=== PATIENT | male | born 1965 | race Caucasian/White ===

== ENCOUNTER 2018-09-15 23:00 | Emergency (ER) | payer BC, OTHER ==
[2018-09-15 23:18] VITALS: BP 159/95
[2018-09-16] MEDS ORDERED: IBUPROFEN 600 MG TABLET PO STA (01:08)
[2018-09-16] MEDS ORDERED: DOXYCYCLINE 100 MG TABLET PO STA (01:08)
[2018-09-16] MEDS ORDERED: ACETAMINOPHEN 325 MG TABLET PO STA (01:08)
--- NOTE | 2018-09-16 01:09 | ED Physician Documentation ---
PD HPI ANIMAL BITE - Stated complaint Stated Complaint: DOG BITE/BOTH HANDS - Chief complaint Chief Complaint: Wound - History obtained from History obtained from: Patient - History of Present Illness Location of injury(ies): Right hand, Left hand Details of the event: Dog, Bite, Well appearing Timing - details: Abrupt onset (tried to break up fight of dogs and both his handys are suggessf) Associated symptoms: Swelling. No: Weakness, Numbness Contributing factors: No: Immunocompromised Review of Systems Constitutional: denies: Fever, Chills Nose: denies: Rhinorrhea / runny nose, Congestion Respiratory: denies: Dyspnea, Cough GI: denies: Abdominal Pain, Nausea, Vomiting PD PAST MEDICAL HISTORY - Past Medical History Past Medical History: No Cardiovascular: None Respiratory: None Neuro: None Endocrine/Autoimmune: None GI: None : None HEENT: None Psych: None Musculoskeletal: None Derm: None - Past Surgical History Past Surgical History: Yes Ortho: Other - Present Medications Home Medications: Ambulatory Orders Medication Instructions Recorded Confirmed Doxycycline Hyclate 100 mg PO BID #14 capsule 09/16/18 - Allergies Allergies/Adverse Reactions: Allergies Allergy/AdvReac Type Severity Reaction Status Date / Time Penicillins Allergy Unknown Verified 09/15/18 23:18 - Social History Does the pt smoke?: No Smoking Status: Never smoker Does the pt drink ETOH?: Yes ETOH Use: Beer, Liquor Does the pt have substance abuse?: No Substance Use and Type: Marijuana - Immunizations Immunizations are current?: No - POLST Patient has POLST: No PD ED PE NORMAL - Vitals Vital signs reviewed: Yes - General General: Alert and oriented X 3, No acute distress (several tooth mora injury of both hands, without any motor deciis. ), Well developed/nourished - Cardiac Cardiac: RRR, No murmur - Respiratory Respiratory: Clear bilaterally - Derm Derm: Normal color, Warm and dry - Extremities Extremities: Other (both hands with several puncture lacerations, left worse than right. No limitations on motor use. and good sencators. ) - Neuro Neuro: Alert and oriented X 3, No motor deficit, No sensory deficit, Normal speech Results - Vitals Vitals: Oxygen O2 Source Room air Procedures - Laceration (location) both hands Length in cm: 6 Wound type: Irregular Tendon involvement: Tendon Injury. No: Tendon intact Anesthesia: Lidocaine 1% with epi Wound Preparation: Irrigated copiously NS Skin layer closure: Nylon, Interrupted, Size #-0 - enter number (1-2 to each cut to keep lCS OL) Other: Patient tolerated well Departure - Departure Disposition: 01 Home, Self Care Clinical Impression: Dog bite, hand Qualifiers: Encounter type: initial encounter Laterality: unspecified laterality Qualified Code(s): S61.459A - Open bite of unspecified hand, initial encounter Condition: Stable Record reviewed to determine appropriate education?: Yes Instructions: ED Bite Animal General, ED Laceration Hand Follow-Up: Car Matthews ND [Primary Care Provider] - Prescriptions: Doxycycline Hyclate 100 mg PO BID #14 capsule Comments: It is okay to wash and shower. Clean off the wound twice a day with soap and water, or peroxide and water. Apply some antibiotic ointment to it to keep it moist. Also to watch for signs of infection such as purulence, redness or incre asing pain. Return to your primary care or the ER at the specified time for suture removal. Suture removal 9-10 days. Doxycycline twice daily for a week to reduce the chance of infection given the bite wounds. Pain medication as needed such as Tylenol ibuprofen or naproxen. Discharge Date/Time: 09/16/18 02:35
== END 2018-09-16 02:35 | disposition home or self-care (01) ==
LOC: ED 23:00
DX: S61.452A Open bite of left hand, initial encounter (principal); S61.451A Open bite of right hand, initial encounter; W54.0XXA Bitten by dog, initial encounter
CPT/HCPCS: 12002; 99283; A9270